=== PATIENT | male | born 1970 | race Two or more races ===

== ENCOUNTER 2024-03-29 08:39 | Outpatient (AMB) | payer BC, SELFPAY ==
--- NOTE | 2024-03-29 08:42 | A.OFFVIS_ITS ---
Vital Signs 03/29/24 08:48 Height 5 ft 6 in Weight 165 lb 12.602 oz BMI 26.8 BP 122/78 Blood Pressure Location Rt brachial Position Sitting Pulse 61 Pulse Source Pulse Oximeter Pulse Oximetry (%) 99 Oxygen Delivery Method Room Air Intake Visit Reasons: RA Intake Note: New patient, referred by [facility], Dr. Spencer, presents today for evaluation of RA. Previous rheum [place], was on MTX and folic acid. 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 Patient was diagnosed back in 2013 with seropositive RA. At that time he was started on methotrexate 10 mg weekly with improvement. Over Time his methotrexate was tapered to 10 mg weekly. His condition was stable. In 2020, the rheumatology practice closed at [place] and patient did not have a aerospace project engineer. He has been without meds since 2020. Patient states that he is trying to get more flare-ups affecting different joints such as his hands, shoulders, feet. Patient remains quite active. He runs or walks every day. Denies any other symptoms such as fevers, weight loss, cough or shortness of br eath. [facility] Medical History Fracture, metacarpal Seropositive rheumatoid arthritis Overweight Surgical History History of lung surgery Family History Father Rheumatoid arthritis Mother No problems noted. 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 Review of Systems Const Denies fever(s) and Denies weight loss Card Denies dyspnea Resp Denies cough and Denies dyspnea Musc Reports deformity, Reports arthralgias and Reports joint swelling Physical Exam Vital Signs: Last Vital Signs Pulse 61 03/29/24 08:48 BP 122/78 03/29/24 08:48 Pulse Ox 99 03/29/24 08:48 Oxygen Delivery Method Room Air 03/29/24 08:48 BMI result Body Mass Index 26.8 Const General: cooperative, healthy appearing and comfortable Nutritional Appearance: overweight Orientation/consciousness: patient oriented x3 Limitations: no limitations HEENT Head: Yes normocephalic and Yes atraumatic Mouth: moist mucous membranes Resp Effort & Inspection: normal respiratory effort and able to speak in complete sentences Auscultation: clear to auscultation bilaterally Cardio Rate: regular rate Rhythm: regular rhythm Skin General skin exam: no rashes or lesions noted Neuro General: patient oriented x3 Extrem Other: Multiple swollen MCPs and PIP is without tenderness Normal bilateral hand health care coordinator strength Normal range of motion of elbows and shoulders without pain Normal range of motion of knees without pain Right foot bunion and bunionette Left foot bunionette Slightly tender Negative MTP squeeze test bilaterally Normal nailfold capillaroscopy Assessment & Plan Assessment & Plan (1) Seropositive rheumatoid arthritis: Comment: +RF +++CCP ++BRODERICK dx 2013 MTX 2013 effective until 2020 lost to f/u 2020 Code(s): M05.9 - Rheumatoid arthritis with rheumatoid factor, unspecified Category: Medical Plan: This is a 53-year-old male with seropositive RA who presents for follow-up. Patient was diagnosed in 2013 and was well controlled with methotrexate until 2020 when his aerospace project engineer left the practice. He has been without DMARDs for a few years. On exam he has multiple swollen joints. Will need to restart DMARDs. Restart methotrexate at 12.5 mg weekly Start folic acid 1 mg daily Labs today and before next visit in 3 months (2) detention methotrexate user: Code(s): Z79.631 - detention (current) use of antimetabolite agent Category: Medical Plan: Monitor safety labs Plan I spent 47 minutes reviewing patient's chart, evaluating patient, ordering diagnostic workup, counseling patient and documenting in the chart Orders: Orders C Reactive Protein Today M05.9 - Rheumatoid arthritis with rheumatoid factor, unspecified, Z79.631 - buttermaker continuous churn (current) use of antimetabolite agent Hepatitis A,B,C Profile Today Z11.59 - Encounter for screening for other viral diseases Complete Blood Count Auto Diff 3 Months M05.9 - Rheumatoid arthritis with rheumatoid factor, unspecified, Z79.631 - buttermaker continuous churn (current) use of antimetabolite agent Comprehensive Met. Panel 3 Months M05.9 - Rheumatoid arthritis with rheumatoid factor, unspecified, Z79.631 - detention (current) use of antimetabolite agent C Reactive Protein 3 Months M05.9 - Rheumatoid arthritis with rheumatoid factor, unspecified, Z79.631 - buttermaker continuous churn (current) use of antimetabolite agent Erythrocyte Sedimentation Rate 3 Months M05.9 - Rheumatoid arthritis with rheumatoid factor, unspecified, Z79.631 - detention (current) use of antimetabolite agent Complete Blood Count Auto Diff Today M05.9 - Rheumatoid arthritis with rheumatoid factor, unspecified, Z79.631 - detention (current) use of antimetabolite agent Comprehensive Met. Panel Today M05.9 - Rheumatoid arthritis with rheumatoid factor, unspecified, Z79.631 - buttermaker continuous churn (current) use of antimetabolite agent Erythrocyte Sedimentation Rate Today M05.9 - Rheumatoid arthritis with rheumatoid factor, unspecified, Z79.631 - buttermaker continuous churn (current) use of antimetabolite agent T Spot TB Today Z11.7 - Encounter for testing for latent tuberculosis infection Medications: New methotrexate sodium 12.5 mg (5 x 2.5 mg) PO QWEEK 60 tabs 0RF folic acid 1 mg PO DAILY 90 tabs 0RF Coding Level of Care Code New Pt Level 4 (22306) Diagnoses Seropositive rheumatoid arthritis M05.9 buttermaker continuous churn methotrexate user Z79.631
[2024-03-29 08:48] VITALS: BP 122/78; PULSE 61; O2SAT 99; BMI 26.8
== END 2024-03-29 09:04 | disposition home or self-care (01) ==
PROVIDERS: PCP Pediatrics; Referring Provider Pediatrics; Visit Provider Student in an Organized Health Care Education/Training Program
DX: M05.79 Rheumatoid arthritis with rheumatoid factor of multiple sites without organ or systems involvement (principal); Z79.631 Long term (current) use of antimetabolite agent
CPT/HCPCS: 99204

== ENCOUNTER → 2024-03-29 08:39 | Outpatient (BNVA) | payer BC, SELFPAY | PROVIDERS: PCP Pediatrics; Referring Provider Pediatrics; Visit Provider Student in an Organized Health Care Education/Training Program ==

== ENCOUNTER 2024-03-29 09:10 | Outpatient (REF) | payer BC, SELFPAY ==
[2024-03-29 10:38] LABS: MANUAL DIFF FLAG NO
[2024-03-29 10:57] LABS: Alanine Aminotransferase 19 U/L (0-40); Albumin Level 4.2 g/dL (3.5-5.0); Alkaline Phosphatase 78 U/L (39-117); Anion Gap 13 (12-20); Aspartate Amino Transferase 21 U/L (5-37); Bilirubin Total 1.2 mg/dL (0.0-1.0); Blood Urea Nitrogen 16 mg/dL (9-16); C Reactive Protein 0.32 mg/dL (< or = 0.50); Calcium 9.4 mg/dL (8.4-10.2); Carbon Dioxide 26 mmol/L (22-29); Chloride 106 mmol/L (96-108); Estimated Glomerular Filt Rate > 60; Glucose Random 96 mg/dL (60-115); Potassium 4.4 mmol/L (3.3-5.1); Sodium 141 mmol/L (135-145); Total Protein 7.4 g/dL (6.5-8.0)
[2024-03-29 10:57] LABS: Basophils Percent Auto 0.5 % (0-2); Eosinophils Absolute Auto 0.1 X10*3/uL (0.0-0.4); Eosinophils Percent Auto 2.2 % (0-4); Hematocrit 42.3 % (42.0-52.0); Hemoglobin 14.4 g/dl (14.0-18.0); Imm Gran Abs Auto 0.01 X10*3/uL (0.00-0.03); Imm Gran Pct Auto 0.2 % (0.0-0.4); Lymphocytes Absolute Auto 1.3 X10*3/uL (1.2-4.9); Lymphocytes Percent Auto 21.6 % (20-40); Mean Corpuscular Hemoglobin 29.8 pg (27.0-33.0); Mean Corpuscular Volume 87.6 fL (80.0-98.0); Mean Platelet Volume 9.7 fL (9.4-12.4); Monocytes Absolute Auto 0.5 X10*3/uL (0.1-1.2); Monocytes Percent Auto 7.9 % (2-11); Neutrophils Absolute Auto 3.9 x10*3/uL (2.0-8.3); Neutrophils Percent Auto 67.6 % (45-73); Platelet Count 270 X10*3/uL (160-400); Red Blood Count 4.83 X10*6/uL (4.60-5.80); Red Cell Distribution Width 13.3 % (11.0-16.0); White Blood Count 5.8 X10*3/uL (4.8-10.8)
[2024-03-29 11:22] LABS: HBS Num1 6.52 mIU/mL (0-7.99); HBc Num1 0.09 S/CO (0.00-0.79); HBsAGNum1 0.35 S/CO (0.00-0.99); Hepatitis A Antibody IgM 0.18 Index (0-0.79); Hepatitis B Core Antibody Nonreactive (Nonreactive); Hepatitis B Surface Antigen Negative (Negative); ~HepC Num1 0.08 S/CO (0.00-0.79); ~Hepatitis A Antibody IgM Nonreactive (Nonreactive); ~Hepatitis B Surface Antibody NONREACTIVE (Nonreactive); ~Hepatitis C Antibody Nonreactive (Nonreactive)
[2024-03-29 11:50] LABS: Erythrocyte Sedimentation Rate 8 MM/HR (0-15)
[2024-04-01 10:13] LABS: TS Negative Control Passed; TS Panel A 0; TS Panel B 1; TS Positive Control Passed; TSpotTB Negative (Negative)
== END 2024-03-29 09:11 | disposition home or self-care (01) ==
LOC: HO.10HDL 09:10
PROVIDERS: Visit Provider Student in an Organized Health Care Education/Training Program
DX: M05.9 Rheumatoid arthritis with rheumatoid factor, unspecified (principal); Z11.7 Encounter for testing for latent tuberculosis infection; Z11.59 Encounter for screening for other viral diseases; Z79.631 Long term (current) use of antimetabolite agent
CPT/HCPCS: 36415; 80053; 85025; 85652; 86140; 86481; 86704; 86706; 86709; 86803; 87340

== ENCOUNTER 2024-06-23 11:54 | Outpatient (REF) | payer BC, SELFPAY ==
[2024-06-23 13:07] LABS: MANUAL DIFF FLAG NO
[2024-06-23 13:30] LABS: Basophils Percent Auto 0.5 % (0-2); Eosinophils Absolute Auto 0.1 X10*3/uL (0.0-0.4); Eosinophils Percent Auto 1.4 % (0-4); Hematocrit 38.5 % (42.0-52.0); Hemoglobin 13.2 g/dl (14.0-18.0); Imm Gran Abs Auto 0.01 X10*3/uL (0.00-0.03); Imm Gran Pct Auto 0.2 % (0.0-0.4); Lymphocytes Absolute Auto 1.4 X10*3/uL (1.2-4.9); Mean Corpuscular HGB Conc 34.3 g/dl (31.0-36.0); Mean Corpuscular Hemoglobin 30.7 pg (27.0-33.0); Mean Corpuscular Volume 89.5 fL (80.0-98.0); Mean Platelet Volume 10.1 fL (9.4-12.4); Monocytes Absolute Auto 0.4 X10*3/uL (0.1-1.2); Monocytes Percent Auto 8.5 % (2-11); Neutrophils Absolute Auto 2.4 x10*3/uL (2.0-8.3); Neutrophils Percent Auto 57.4 % (45-73); Platelet Count 235 X10*3/uL (160-400); White Blood Count 4.3 X10*3/uL (4.8-10.8)
[2024-06-23 14:12] LABS: Erythrocyte Sedimentation Rate 7 MM/HR (0-15)
[2024-06-23 14:15] LABS: Alanine Aminotransferase 18 U/L (0-40); Albumin Level 3.9 g/dL (3.5-5.0); Alkaline Phosphatase 79 U/L (39-117); Anion Gap 9 (12-20); Aspartate Amino Transferase 20 U/L (5-37); Bilirubin Total 1.3 mg/dL (0.0-1.0); Blood Urea Nitrogen 13 mg/dL (9-16); C Reactive Protein 0.12 mg/dL (< or = 0.50); Calcium 8.9 mg/dL (8.4-10.2); Carbon Dioxide 26 mmol/L (22-29); Chloride 109 mmol/L (96-108); Estimated Glomerular Filt Rate > 60; Glucose Random 103 mg/dL (60-115); Sodium 140 mmol/L (135-145); Total Protein 6.9 g/dL (6.5-8.0)
== END 2024-06-23 11:55 | disposition home or self-care (01) ==
LOC: HO.10HDL 11:54
PROVIDERS: Visit Provider Student in an Organized Health Care Education/Training Program
DX: M05.9 Rheumatoid arthritis with rheumatoid factor, unspecified (principal); Z79.631 Long term (current) use of antimetabolite agent
CPT/HCPCS: 36415; 80053; 85025; 85652; 86140

== ENCOUNTER 2024-07-03 09:04 | Outpatient (AMB) | payer BC, SELFPAY ==
--- NOTE | 2024-07-03 09:16 | A.OFFVIS_ITS ---
Vital Signs 07/03/24 09:17 Height 5 ft 6 in Weight 157 lb 6.561 oz BMI 25.4 BP 118/74 Blood Pressure Location Lt brachial Position Sitting Pulse 50 Pulse Source Pulse Oximeter Pulse Oximetry (%) 99 Oxygen Delivery Method Room Air Intake Visit Reasons: RA Intake Note: Patient presents follow up for RA today and lab review, last seen on 03/29/2024. Allergies No Known Allergies Allergy (Verified 07/03/24 09:19) Medication List - Last Reconciled 07/03/24 by Jia Garvin MD folic acid 1 mg PO DAILY methotrexate sodium 12.5 mg (5 x 2.5 mg) PO QWEEK multivitamin 1 tab PO DAILY omega 4-tps-yor-fish oil 60-90-500 mg (Fish Oil) 1 cap PO DAILY HPI Comments Details: This is a 53-year-old male with seropositive RA who presents for follow-up. He started taking methotrexate 12.5 mg once weekly as prescribed. Does not recall any side effects. He states that he notes significant improvement in his overall joint pain swelling and achiness. Doing well overall. Would like to discuss blood work Initial history: This is a 53-year-old male with history of seropositive RA who presents as a new patient. Patient was diagnosed back in 2013 with seropositive RA. At that time he was started on methotrexate 10 mg weekly with improvement. Over Time his methotrexate was tapered to 10 mg weekly. His condition was stable. In 2020, the rheumatology practice closed at [place] and patient did not have a whipped topping supervisor. He has been without meds since 2020. Patient states that he is trying to get more flare-ups affecting different joints such as his hands, shoulders, feet. Patient remains quite active. He runs or walks every day. Denies any other symptoms such as fevers, weight loss, cough or shortness of breath. [facility] Medical History Fracture, metacarpal Seropositive rheumatoid arthritis Overweight Surgical History History of lung surgery Family History Father Rheumatoid arthritis Mother No problems noted. 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 Review of Systems [facility] [place] Reports arthralgias Physical Exam Vital Signs: Last Vital Signs Pulse 50 07/03/24 09:17 BP 118/74 07/03/24 09:17 Pulse Ox 99 07/03/24 09:17 Oxygen Delivery Method Room Air 07/03/24 09:17 BMI result Body Mass Index 25.4 Const General: cooperative, healthy appearing and comfortable Nutritional Appearance: overweight Orientation/consciousness: patient oriented x3 Limitations: no limitations HEENT Head: Yes normocephalic and Yes atraumatic Mouth: moist mucous membranes Resp Effort & Inspection: normal respiratory effort and able to speak in complete sentences Cardio Rhythm: regular rhythm Skin General skin exam: no rashes or lesions noted Neuro General: patient oriented x3 Extrem Other: No wrist swelling or tenderness bilaterally or pain with flexion-extension Normal bilateral hand chip tuner strength No swollen MCPs today Mild swelling and bony enlargement of right 2nd and 3rd PIP is and left 3rd PIP. Only minimal tenderness Normal range of motion of elbows and shoulders without pain Normal range of motion of knees without pain Right foot bunion and bunionette Left foot bunionette Slightly tender Negative MTP squeeze test bilaterally Normal nailfold capillaroscopy Assessment & Plan Assessment & Plan (1) Seropositive rheumatoid arthritis: Comment: +RF +++CCP ++BRODERICK dx 2013 MTX 2013 effective until 2020 lost to f/u 2020 MTX restarted 03/2024 Code(s): M05.9 - Rheumatoid arthritis with rheumatoid factor, unspecified Category: Medical Plan: This is a 53-year-old male with seropositive RA who presents for follow-up. Started methotrexate 12.5 mg once weekly plus folic acid 1 mg daily last visit without side effects. On exam synovitis improved. Continue methotrexate 12.5 mg weekly Patient had to pay for folic acid, DC folic acid Start Leucovorin 5 mg once weekly the day after methotrexate Labs before next visit in 4 months (2) long-term methotrexate user: Code(s): Z79.631 - long-term (current) use of antimetabolite agent Category: Medical Plan: Mild anemia leukopenia since methotrexate was started. No infections We will keep an eye on it. Monitor safety labs. Hopefully it will improve with Leucovorin Plan I spent 25 minutes reviewing patient's chart, evaluating patient, ordering diagnostic workup, counseling patient and documenting in the chart Orders: Orders C Reactive Protein 4 Months M05.9 - Rheumatoid arthritis with rheumatoid factor, unspecified, Z79.631 - watermelon harvesting supervisor (current) use of antimetabolite agent Erythrocyte Sedimentation Rate 4 Months M05.9 - Rheumatoid arthritis with rheumatoid factor, unspecified, Z79.631 - long-term (current) use of antimetab olite agent Complete Blood Count Auto Diff 4 Months M05.9 - Rheumatoid arthritis with rheumatoid factor, unspecified, Z79.631 - long-term (current) use of antimetabolite agent Comprehensive Met. Panel 4 Months M05.9 - Rheumatoid arthritis with rheumatoid factor, unspecified, Z79.631 - watermelon harvesting supervisor (current) use of antimetabolite agent Medications: New leucovorin calcium Take 1 tab once weekly the day after you take methotrexate 5 mg PO QWEEK 12 tabs 1RF Discontinued folic acid Discontinued Reason: Doctor's Order 1 mg PO DAILY 90 tabs 0RF Coding Level of Care Code Est Pt Level 4 (18731) Diagnoses Seropositive rheumatoid arthritis M05.9 long-term methotrexate user Z79.631
[2024-07-03 09:17] VITALS: BP 118/74; PULSE 50; O2SAT 99; BMI 25.4
== END 2024-07-03 09:34 | disposition home or self-care (01) ==
PROVIDERS: PCP Pediatrics; Visit Provider Student in an Organized Health Care Education/Training Program
DX: M05.79 Rheumatoid arthritis with rheumatoid factor of multiple sites without organ or systems involvement (principal); Z79.631 Long term (current) use of antimetabolite agent
CPT/HCPCS: 99214

== ENCOUNTER → 2024-07-03 09:04 | Outpatient (BNVA) | payer BC, SELFPAY | PROVIDERS: PCP Pediatrics; Visit Provider Student in an Organized Health Care Education/Training Program ==

== ENCOUNTER 2024-10-20 08:59 | Outpatient (REF) | payer BC, SELFPAY ==
[2024-10-20 10:40] LABS: MANUAL DIFF FLAG NO
[2024-10-20 10:51] LABS: Basophils Percent Auto 0.5 % (0-2); Eosinophils Absolute Auto 0.1 X10*3/uL (0.0-0.4); Eosinophils Percent Auto 2.5 % (0-4); Hematocrit 41.3 % (42.0-52.0); Hemoglobin 13.9 g/dl (14.0-18.0); Imm Gran Abs Auto 0.01 X10*3/uL (0.00-0.03); Imm Gran Pct Auto 0.2 % (0.0-0.4); Lymphocytes Absolute Auto 1.2 X10*3/uL (1.2-4.9); Lymphocytes Percent Auto 22.3 % (20-40); Mean Corpuscular HGB Conc 33.7 g/dl (31.0-36.0); Mean Corpuscular Hemoglobin 30.8 pg (27.0-33.0); Mean Corpuscular Volume 91.4 fL (80.0-98.0); Mean Platelet Volume 9.7 fL (9.4-12.4); Monocytes Absolute Auto 0.5 X10*3/uL (0.1-1.2); Monocytes Percent Auto 9.2 % (2-11); Neutrophils Absolute Auto 3.6 x10*3/uL (2.0-8.3); Neutrophils Percent Auto 65.3 % (45-73); Platelet Count 247 X10*3/uL (160-400); Red Blood Count 4.52 X10*6/uL (4.60-5.80); Red Cell Distribution Width 12.6 % (11.0-16.0); White Blood Count 5.6 X10*3/uL (4.8-10.8)
[2024-10-20 11:06] LABS: Alanine Aminotransferase 26 U/L (0-40); Albumin Level 4.1 g/dL (3.5-5.0); Alkaline Phosphatase 75 U/L (39-117); Anion Gap 11 (12-20); Aspartate Amino Transferase 29 U/L (5-37); Bilirubin Total 1.1 mg/dL (0.0-1.0); Blood Urea Nitrogen 15 mg/dL (9-16); C Reactive Protein 0.11 mg/dL (< or = 0.50); Calcium 8.9 mg/dL (8.4-10.2); Carbon Dioxide 25 mmol/L (22-29); Chloride 108 mmol/L (96-108); Estimated Glomerular Filt Rate > 60; Glucose Random 84 mg/dL (60-115); Sodium 140 mmol/L (135-145); Total Protein 6.9 g/dL (6.5-8.0)
[2024-10-20 11:31] LABS: Erythrocyte Sedimentation Rate 3 MM/HR (0-15)
== END 2024-10-20 09:00 | disposition home or self-care (01) ==
LOC: HO.10HDL 08:59
PROVIDERS: Visit Provider Student in an Organized Health Care Education/Training Program
DX: M05.9 Rheumatoid arthritis with rheumatoid factor, unspecified (principal); Z79.631 Long term (current) use of antimetabolite agent
CPT/HCPCS: 36415; 80053; 85025; 85652; 86140

== ENCOUNTER 2024-10-23 09:10 | Outpatient (AMB) | payer BC, SELFPAY ==
--- NOTE | 2024-10-23 09:16 | A.OFFVIS_ITS ---
Vital Signs 10/23/24 09:19 Height 5 ft 6 in Weight 160 lb 7.944 oz BMI 25.9 BP 115/70 Blood Pressure Location Rt brachial Position Sitting Pulse 48 L Pulse Source Pulse Oximeter Pulse Oximetry (%) 98 Oxygen Delivery Method Simple Mask Intake Visit Reasons: RA Intake Note: Patient presents for RA. Allergies No Known Allergies Allergy (Verified 10/23/24 09:18) Medication List - Last Reconciled 10/23/24 by Jia Garvin MD leucovorin calcium 5 mg PO QWEEK methotrexate sodium 12.5 mg (5 x 2.5 mg) PO QWEEK multivitamin 1 tab PO DAILY omega 0-lgw-fer-fish oil 60-90-500 mg (Fish Oil) 1 cap PO DAILY HPI Comments Details: This is a 54-year-old male with seropositive RA who presents for follow-up. On 12.5 mg once weekly as prescribed and Leucovorin 5 mg once weekly. Doing well overall with no joint pain or stiffness. He has noticed some on fingers here and there but they do not limit him in any way. States that his eyes were feeling tired recently and he was evaluated by an fitting room inspector and had new prescription progressive lenses. States that his fitting room inspector suggested that he see an road oiler. Initial history: This is a 53-year-old male with history of seropositive RA who presents as a new patient. Patient was diagnosed back in 2013 with seropositive RA. At that time he was started on methotrexate 10 mg weekly with improvement. Over Time his methotrexate was tapered to 10 mg weekly. His condition was stable. In 2020, the rheumatology practice closed at [place] and patient did not have a sensitizer. He has been without meds since 2020. Patient states that he is trying to get more flare-ups affecting different joints such as his hands, shoulders, feet. Patient remains quite active. He runs or walks every day. Denies any other symptoms such as fevers, weight loss, cough or shortness of breath. [facility] Medical History Fracture, metacarpal Seropositive rheumatoid arthritis Overweight Surgical History History of lung surgery Family History Father Rheumatoid arthritis Mother No problems noted. 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 Review of Systems Eyes Details: Tired eyes Musc Denies arthralgias, Reports joint swelling and Denies stiffness Physical Exam Vital Signs: Last Vital Signs Pulse 48 L 10/23/24 09:19 BP 115/70 10/23/24 09:19 Pulse Ox 98 10/23/24 09:19 Oxygen Delivery Method Simple Mask 10/23/24 09:19 BMI result Body Mass Index 25.9 Const General: cooperative, healthy appearing and comfortable Nutritional Appearance: overweight Orientation/consciousness: patient oriented x3 Limitations: no limitations HEENT Head: Yes normocephalic and Yes atraumatic Mouth: moist mucous membranes Resp Effort & Inspection: normal respiratory effort and able to speak in complete sentences Cardio Rhythm: regular rhythm Skin General skin exam: no rashes or lesions noted Neuro General: patient oriented x3 Extrem Other: No wrist swelling or tenderness bilaterally or pain with flexion-extension Normal bilateral hand statistician mathematical strength Right 3rd MCP swelling without tenderness Mild swelling and bony enlargement of right 2nd and 3rd PIPs and left 3rd PIP. Not tender Normal range of motion of elbows and shoulders without pain Normal range of motion of knees without pain Negative MTP squeeze test bilaterally Normal nailfold capillaroscopy Assessment & Plan Assessment & Plan (1) Seropositive rheumatoid arthritis: Comment: +RF +++CCP ++BRODERICK dx 2013 MTX 2014 effective until 2020 lost to f/u 2020 MTX restarted 03/2024 Code(s): M05.9 - Rheumatoid arthritis with rheumatoid factor, unspecified Category: Medical Plan: This is a 53-year-old male with seropositive RA who presents for follow-up. Started methotrexate 12.5 mg once weekly plus leucovorin 5 mg once weekly. On exam today patient has few swollen joints, non that are tender, inflammatory markers are normal. Patient asymptomatic. We will continue to monitor patient clinically. Can consider increasing methotrexate in the future. Continue methotrexate 12.5 mg weekly Continue Leucovorin 5 mg once weekly Labs before next visit in 4 months (2) [facility] methotrexate user: Code(s): Z79.631 - [facility] (current) use of antimetabolite agent Category: Medical Plan: Monitor safety labs (3) Tired eyes: Code(s): H53.10 - Unspecified subjective visual disturbances Category: Medical Plan: Patient concerned about eye involvement with rheumatoid arthritis. He was recently evaluated by fitting room inspector who suggested an ophthalmology evaluation. Discussed with patient that ophthalmologic complications can acquire and patients with rheumatoid arthritis but these are usually rare and in patients who have poorly-controlled RA however given his history of RA and Design Assembler recommendation to see Ophthalmology I suggested making an appointment with road oiler Plan I spent 25 minutes reviewing patient's chart, evaluating patient, ordering diagnostic workup, counseling patient and documenting in the chart Orders: Orders Complete Blood Count Auto Diff 4 Months M05.9 - Rheumatoid arthritis with rheumatoid factor, unspecified, Z79.631 - [facility] (current) use of antimetabolite agent Comprehensive Met. Panel 4 Months M05.9 - Rheumatoid arthritis with rheumatoid factor, unspecified, Z79.631 - [facility] (current) use of antimetabolite agent C Reactive Protein 4 Months M05.9 - Rheumatoid arthritis with rheumatoid facto r, unspecified, Z79.631 - terminal computer operator (current) use of antimetabolite agent Erythrocyte Sedimentation Rate 4 Months M05.9 - Rheumatoid arthritis with rheumatoid factor, unspecified, Z79.631 - terminal computer operator (current) use of antimetabolite agent Medications: Refilled leucovorin calcium Take 1 tab once weekly the day after you take methotrexate 5 mg PO QWEEK 12 tabs 1RF Coding Level of Care Code Est Pt Level 4 (02307) Complex EM visit Add On G2211 Diagnoses Seropositive rheumatoid arthritis M05.9 terminal computer operator methotrexate user Z79.631 Tired eyes H53.10
[2024-10-23 09:19] VITALS: BP 115/70; PULSE 48; O2SAT 98; BMI 25.9
== END 2024-10-23 09:41 | disposition home or self-care (01) ==
PROVIDERS: PCP Pediatrics; Visit Provider Student in an Organized Health Care Education/Training Program
DX: M05.79 Rheumatoid arthritis with rheumatoid factor of multiple sites without organ or systems involvement (principal); Z79.631 Long term (current) use of antimetabolite agent; H53.10 Unspecified subjective visual disturbances
CPT/HCPCS: 99214

== ENCOUNTER 2025-02-20 08:37 | Outpatient (REF) | payer BC, SELFPAY ==
[2025-02-20 09:52] LABS: MANUAL DIFF FLAG NO
[2025-02-20 11:05] LABS: Basophils Percent Auto 0.5 % (0-2); Eosinophils Absolute Auto 0.2 X10*3/uL (0.0-0.4); Eosinophils Percent Auto 3.1 % (0-4); Hematocrit 40.1 % (42.0-52.0); Hemoglobin 13.5 g/dl (14.0-18.0); Imm Gran Abs Auto 0.01 X10*3/uL (0.00-0.03); Imm Gran Pct Auto 0.2 % (0.0-0.4); Lymphocytes Absolute Auto 1.3 X10*3/uL (1.2-4.9); Lymphocytes Percent Auto 21.8 % (20-40); Mean Corpuscular HGB Conc 33.7 g/dl (31.0-36.0); Mean Platelet Volume 10.2 fL (9.4-12.4); Monocytes Absolute Auto 0.5 X10*3/uL (0.1-1.2); Monocytes Percent Auto 8.5 % (2-11); Neutrophils Absolute Auto 3.9 x10*3/uL (2.0-8.3); Neutrophils Percent Auto 65.9 % (45-73); Platelet Count 245 X10*3/uL (160-400); Red Blood Count 4.36 X10*6/uL (4.60-5.80); Red Cell Distribution Width 13.5 % (11.0-16.0); White Blood Count 5.9 X10*3/uL (4.8-10.8)
[2025-02-20 11:32] LABS: Alanine Aminotransferase 18 U/L (0-40); Alkaline Phosphatase 82 U/L (39-117); Anion Gap 8 (12-20); Aspartate Amino Transferase 25 U/L (5-37); Bilirubin Total 1.1 mg/dL (0.0-1.0); Blood Urea Nitrogen 15 mg/dL (9-16); C Reactive Protein 0.15 mg/dL (< or = 0.50); Calcium 8.7 mg/dL (8.4-10.2); Carbon Dioxide 27 mmol/L (22-29); Chloride 108 mmol/L (96-108); Estimated Glomerular Filt Rate > 60; Glucose Random 104 mg/dL (60-115); Potassium 4.3 mmol/L (3.3-5.1); Sodium 139 mmol/L (135-145); Total Protein 6.7 g/dL (6.5-8.0)
[2025-02-20 12:20] LABS: Erythrocyte Sedimentation Rate 7 MM/HR (0-15)
== END 2025-02-20 08:38 | disposition home or self-care (01) ==
LOC: HO.10HDL 08:37
PROVIDERS: Visit Provider Student in an Organized Health Care Education/Training Program
DX: M05.9 Rheumatoid arthritis with rheumatoid factor, unspecified (principal); Z79.631 Long term (current) use of antimetabolite agent
CPT/HCPCS: 36415; 80053; 85025; 85652; 86140

== ENCOUNTER 2025-02-23 11:11 | Outpatient (AMB) | payer BC, SELFPAY ==
--- NOTE | 2025-02-23 11:36 | A.OFFVIS_ITS ---
Vital Signs 02/23/25 11:39 Height 5 ft 6 in Weight 161 lb 6.054 oz BMI 26.0 BP 112/78 Blood Pressure Location Lt brachial Position Sitting Pulse 46 L Pulse Source Pulse Oximeter Pulse Oximetry (%) 98 Oxygen Delivery Method Room Air Intake Visit Reasons: RA Intake Note: Patient presents for RA. Allergies No Known Allergies Allergy (Verified 02/23/25 11:39) Medication List - Last Reconciled 02/23/25 by Adriane Pérez MD leucovorin calcium 5 mg PO QWEEK methotrexate sodium 12.5 mg (5 x 2.5 mg) PO QWEEK 90 days multivitamin 1 tab PO DAILY omega 9-ahj-tnf-fish oil 60-90-500 mg (Fish Oil) 1 cap PO DAILY HPI Comments Details: Patient is a 54-year-old male with seropositive rheumatoid arthritis here today for follow up Interval History: Patient last seen 10/23/[address] Garvin. At that time he was on methotrexate 12.5 mg once a week and leucovorin rescue 5 mg once weekly 24 hours after the me thotrexate dose. Reported that she was doing well with no joint pain or stiffness at that time. He did have a few swollen joints on examination but his inflammatory markers were normal and so no changes were made to his medications Today, Patient states he is doing well on the Mtx Complains of left wrist pain has AM stiffness about 2 hours Intermittent PIP swelling but no tenderness Very active, runs every day Sometimes gets right MTP pain Rheumatologic History: +RF +++CCP ++BRODERICK dx 2013 MTX 2013 effective until 2020 lost to f/u 2020 MTX restarted 03/2024 Initial history: This is a 53-year-old male with history of seropositive RA who presents as a new patient. Patient was diagnosed back in 2013 with seropositive RA. At that time he was started on methotrexate 10 mg weekly with improvement. Over Time his methotrexate was tapered to 10 mg weekly. His condition was stable. 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 He has been without meds since 2020. Patient states that he is trying to get more flare-ups affecting different joints such as his hands, shoulders, feet. Patient remains quite active. He runs or walks every day. Denies any other symptoms such as fevers, weight loss, cough or shortness of breath. Current Rheumatology Medication(s): Methotrexate 12.5mg once weekly Leucovorin 5 mg once weekly [facility] Medical History Fracture, metacarpal Seropositive rheumatoid arthritis Overweight Surgical History History of lung surgery Family History Father Rheumatoid arthritis Mother No problems noted. 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 Review of Systems Const Details: Review of Systems Constitutional: Denies fever, chills, weight loss ENT: Denies vision changes, eye pain or eye redness, dental caries, dry mouth GI: Denies nausea, vomiting, diarrhea, abdominal pain, change in BM Pulm: Denies SOB, JORGENSEN, hemoptysis, wheezing Cards: Denies chest pain, palpitations Skin: Denies Raynaud's, rash, nail changes, photosensitivity, TIME STUDY CLERK: Denies headaches, weakness, paresthesias, recurrent falls MSK: as per HPI All other systems reviewed and are unremarkable except noted above Physical Exam Vital Signs: BMI result Body Mass Index 26.0 Vital signs reviewed Physical Examination CONSTITUITIONAL Patient alert and cooperative. Well appearing and in no apparent painful distress HEENT Conjunctiva and sclera clear. ?Pupils equal round and reactive to light. ?No lymphadenopathy. ? CHEST/RESPIRATORY SYSTEM Normal respiratory effort and able to speak in complete sentences. ?Clear to auscultation bilaterally. ?No crackles, rales, rhonchi, wheezes heard. CARDIAC SYSTEM Regular rate and rhythm. ?S1 and S2 heard no murmurs. ?Radial pulses intact bilaterally MSK Hands: ?Able to make a fist. Swelling but no tenderness to palpation of the right 3rd and 4th PIPs, left 3rd and 4th PIPs. Synovial hypertrophy noted to the 2nd and 3rd MCPs bilaterally Wrists: ?Full range of motion at the wrists without pain. ?No tenderness to palpation or synovitis noted to the wrists. Tenderness to palpation of the 6th compartment of the wrist continuing the extensor carpi ulnaris Elbows: Full range of motion without pain. No tenderness, weakness, swelling, increased warmth or erythema. Shoulders: Full range of active range of motion without pain. No tenderness, weakness, swelling, increased warmth or erythema. Knees: ?Full range of motion. ?No tenderness, swelling, increased warmth or erythema.? Crepitations felt Ankles: Full range of motion. ?No tenderness, swelling, increased warmth or erythema.? Feet: ?Positive squeeze test on the right with tenderness to palpation of the 1st MTP. Negative squeeze test on the left Tender points:?No tenderness to palpation of the bilateral trapezius, supraspinatus, greater trochanters, anterior costochondral junctions, bilateral gluteal areas, bilateral suboccipital muscle insertions SKIN Skin intact without rashes. Results Reviewed Results Reviewed: Laboratory Tests 02/20/25 08:40 WBC 5.9 RBC 4.36 L Hgb 13.5 L Hct 40.1 L ESR 7 Sodium 139 Potassium 4.3 Chloride 108 Carbon Dioxide 27 BUN 15 Creatinine 0.87 AST 25 ALT 18 Alkaline Phosphatase 82 C-Reactive Protein 0.15 Laboratory Tests 03/29/24 09:14 Hepatitis A IgM Ab Nonreactive Hep Bs Antigen Negative Hep Bs Antibody NONREACTIVE Hep B Core Total Ab Nonreactive Hepatitis C Ab (EIA) Nonreactive TB Test (T-Spot) Com Negative Assessment & Plan Assessment & Plan (1) Seropositive rheumatoid arthritis: Comment: +RF +++CCP ++BRODERICK dx 2013 MTX 2013 effective until 2020 lost to f/u 2020 MTX restarted 03/2024 Code(s): M05.9 - Rheumatoid arthritis with rheumatoid factor, unspecified Category: Medical Plan: #Seropositive RA Patient is a 54-year-old male with seropositive rheumatoid arthritis here today for follow up. Currently with [id number] disease activity on methotrexate monotherapy. We will increase the dose to 15 mg weekly. 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 Limit alcohol and avoid Bactrim ? Monitoring: ?CBC, BMP, LFTs every 3-4 months and hepatitis serologies as needed Plan I spent 35 minutes reviewing the record and labs, taking a history, examining the patient, discussing the treatment plan, ordering diagnostic work up and documenting in the medical record Orders: Orders XR hand RT min 3V Today M05.9 - Rheumatoid arthritis with rheumatoid factor, unspecified XR wrist RT min 3V Today M05.9 - Rheumatoid arthritis with rheumatoid factor, unspecified XR foot LT min 3V Today M05.9 - Rheumatoid arthritis with rheumatoid factor, unspecified Comprehensive Met. Panel 4 Months M05.9 - Rheumatoid arthritis with rheumatoid factor, unspecified C Reactive Protein 4 Months M05.9 - Rheumatoid arthritis with rheumatoid factor, unspecified XR hand LT min 3V Today M05.9 - Rheumatoid arthritis with rheumatoid factor, unspecified XR wrist LT min 3V Today M05.9 - Rheumatoid arthritis with rheumatoid factor, unspecified XR foot RT min 3V Today M05.9 - Rheumatoid arthritis with rheumatoid factor, unspecified Complete Blood Count Auto Diff 4 Months M05.9 - Rheumatoid arthritis with rheumatoid factor, unspecified Erythrocyte Sedimentation Rate 4 Months M05.9 - Rheumatoid arthritis with rheumatoid factor, unspecified Hepatitis A,B,C Profile 4 Months M05.9 - Rheumatoid arthritis with rheumatoid factor, unspecified T Spot TB 4 Months M05.9 - Rheumatoid arthritis with rheumatoid factor, unspecified Medications: Changed From methotrexate sodium 12.5 mg (5 x 2.5 mg) PO QWEEK 90 days 65 tabs 1RF M05.9 - Rheumatoid arthritis with rheumatoid factor, unspecified To methotrexate sodium 15 mg (6 x 2.5 mg) PO QWEEK 90 days 78 tabs 1RF M05.9 - Rheumatoid arthritis with rheumatoid factor, unspecified Coding Level of Care Code Est Pt Level 4 (88086) Complex EM visit Add On G2211 Diagnoses Seropositive rheumatoid arthritis M05.9 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
[2025-02-23 11:39] VITALS: BP 112/78; PULSE 46; O2SAT 98; BMI 26.0
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
== END 2025-02-23 12:04 | disposition home or self-care (01) ==
LOC: HO.RHE 11:11
PROVIDERS: PCP Pediatrics; Visit Provider Student in an Organized Health Care Education/Training Program
DX: M05.79 Rheumatoid arthritis with rheumatoid factor of multiple sites without organ or systems involvement (principal); Z79.631 Long term (current) use of antimetabolite agent
CPT/HCPCS: 99214

== ENCOUNTER 2025-06-13 15:05 | Outpatient (REF) | payer BC, SELFPAY ==
--- NOTE | ~2025-06-13 | XR_ITS ---
EXAMINATION: XR HAND, RIGHT XR HAND, LEFT XR WRIST, RIGHT XR WRIST, LEFT CLINICAL INFORMATION: M05.9 - Rheumatoid arthritis with rheumatoid factor, unspecified COMPARISON: None available. TECHNIQUE: Three views of each hand and Four views of each wrist. FINDINGS: RIGHT HAND AND WRIST: The bones and soft tissues are normal. No fracture. Alignment is anatomic. Joint spaces are maintained. No periarticular erosions or periarticular osteopenia. No significant degenerative findings. Normal carpal rows. Mild negative ulnar variance. Normal soft tissues. LEFT HAND AND WRIST: The bones and soft tissues are normal. No acute fracture. There is a healed fracture of the distal fourth metacarpal. Alignment is anatomic. Joint spaces are maintained. No periarticular erosions or periarticular osteopenia. No significant degenerative findings. Normal carpal rows. Mild negative ulnar variance. Normal soft tissues. XR/XR Wrist Sloan min 3V IMPRESSION: Essentially normal hands and wrists. No evidence of erosive arthropathy. Electronically signed by: Renan Adler MD 06/13/2025 04:06 PM EDT
--- NOTE | ~2025-06-13 | XR_ITS ---
EXAMINATION: XR HAND, RIGHT XR HAND, LEFT XR WRIST, RIGHT XR WRIST, LEFT CLINICAL INFORMATION: M05.9 - Rheumatoid arthritis with rheumatoid factor, unspecified COMPARISON: None available. TECHNIQUE: Three views of each hand and Four views of each wrist. FINDINGS: RIGHT HAND AND WRIST: The bones and soft tissues are normal. No fracture. Alignment is anatomic. Joint spaces are maintained. No periarticular erosions or periarticular osteopenia. No significant degenerative findings. Normal carpal rows. Mild negative ulnar variance. Normal soft tissues. LEFT HAND AND WRIST: The bones and soft tissues are normal. No acute fracture. There is a healed fracture of the distal fourth metacarpal. Alignment is anatomic. Joint spaces are maintained. No periarticular erosions or periarticular osteopenia. No significant degenerative findings. Normal carpal rows. Mild negative ulnar variance. Normal soft tissues. XR/XR Hand Bilat min 3v IMPRESSION: Essentially normal hands and wrists. No evidence of erosive arthropathy. Electronically signed by: Renan Adler MD 06/13/2025 04:06 PM EDT
--- NOTE | ~2025-06-13 | XR_ITS ---
EXAMINATION: XR FOOT, SLOAN 3V CLINICAL INFORMATION: M05.9 - Rheumatoid arthritis with rheumatoid factor, unspecified COMPARISON: None available. TECHNIQUE: AP, lateral, and oblique views of each foot. FINDINGS: RIGHT FOOT: No fracture, dislocation, or suspicious bone lesion. No periarticular osteopenia or evidence of periarticular erosions present. Mild degenerative arthritis in the first MTP joint. Normal plantar arch. The midfoot and hindfoot appear normal. There is no soft tissue abnormality. LEFT FOOT: No fracture, dislocation, or suspicious bone lesion. No periarticular osteopenia or evidence of periarticular erosions present. Minimal degenerative arthritis in the first MTP joint. Normal plantar arch. The midfoot and hindfoot appear normal. There is no soft tissue abnormality. XR/XR Foot Sloan 3V IMPRESSION: 1. No evidence of erosive arthropathy in either foot. Essentially normal exams. Electronically signed by: Renan Adler MD 06/13/2025 04:02 PM EDT
[2025-06-13 16:07] LABS: MANUAL DIFF FLAG NO
--- OUTSIDE RECORDS SUMMARY | 2025-06-13 16:23 | XMS_ITS ---
Author Name [facility] Organization Unknown Care Team Organization Name Specialty Phone Email Start Date End Da te [facility] Yovani Spencer Primary Care 2022 06/05/2024
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
[2025-06-13 17:23] LABS: Hematocrit 40.3 % (42.0-52.0); Hemoglobin 13.9 g/dl (14.0-18.0); Imm Gran Pct Auto 0.2 % (0.0-0.4); Mean Corpuscular HGB Conc 34.5 g/dl (31.0-36.0); Mean Corpuscular Hemoglobin 30.8 pg (27.0-33.0); Mean Corpuscular Volume 89.2 fL (80.0-98.0); Platelet Count 256 X10*3/uL (160-400); Red Blood Count 4.52 X10*6/uL (4.60-5.80); White Blood Count 5.7 X10*3/uL (4.8-10.8)
[2025-06-13 17:24] LABS: Imm Gran Abs Auto 0.01 X10*3/uL (0.00-0.03); Lymphocytes Absolute Auto 1.3 X10*3/uL (1.2-4.9); NRBC Abs Auto 0.000 X10*3/uL (0.0-0.012); NRBC Pct Auto 0.0 /100WBC (0.0-0.2)
[2025-06-13 18:10] LABS: Alanine Aminotransferase 21 U/L (0-40); Albumin Level 4.2 g/dL (3.5-5.0); Alkaline Phosphatase 70 U/L (39-117); Anion Gap 13 (12-20); Aspartate Amino Transferase 39 U/L (5-37); Blood Urea Nitrogen 15 mg/dL (9-16); Calcium 8.9 mg/dL (8.4-10.2); Carbon Dioxide 22 mmol/L (22-29); Chloride 106 mmol/L (96-108); Estimated Glomerular Filt Rate > 60; Potassium 4.1 mmol/L (3.3-5.1); Sodium 137 mmol/L (135-145); Total Protein 7.2 g/dL (6.5-8.0)
[2025-06-14 04:20] LABS: HBS Num1 3.82 mIU/mL (0-7.99); HBc Num1 0.06 S/CO (0.00-0.79); HBsAGNum1 0.47 S/CO (0.00-0.99); Hepatitis A Antibody IgM 0.19 Index (0-0.79); Hepatitis B Surface Antigen Negative (Negative); ~HepC Num1 0.08 S/CO (0.00-0.79); ~Hepatitis A Antibody IgM Nonreactive (Nonreactive); ~Hepatitis B Surface Antibody NONREACTIVE (Nonreactive); ~Hepatitis C Antibody Nonreactive (Nonreactive)
[2025-06-15 22:28] LABS: TS Negative Control Passed; TS Panel A 0; TS Panel B 0; TS Positive Control Passed; TSpotTB Negative (Negative)
== END 2025-06-13 15:06 | disposition home or self-care (01) ==
LOC: HO.XRAY 15:05
PROVIDERS: PCP Pediatrics; Visit Provider Student in an Organized Health Care Education/Training Program
DX: Z11.1 Encounter for screening for respiratory tuberculosis (principal); Z11.59 Encounter for screening for other viral diseases; M05.9 Rheumatoid arthritis with rheumatoid factor, unspecified
CPT/HCPCS: 36415; 73110; 73130; 73630; 80053; 85025; 85652; 86140; 86481; 86704; 86706; 86709; 86803; 87340

== ENCOUNTER → 2025-06-13 15:10 | Outpatient (BNV) | payer BC, SELFPAY | PROVIDERS: PCP Pediatrics; Visit Provider Radiology Diagnostic Radiology | DX: M05.79 Rheumatoid arthritis with rheumatoid factor of multiple sites without organ or systems involvement (principal) | CPT/HCPCS: 73110; 73130; 73630 ==

== ENCOUNTER 2025-06-26 10:26 | Outpatient (AMB) | payer BC, SELFPAY ==
--- NOTE | 2025-06-26 10:53 | A.OFFVIS_ITS ---
Vital Signs 06/26/25 10:57 Height 5 ft 6 in Weight 158 lb 15.253 oz BMI 25.7 BP 115/64 Blood Pressure Location Rt brachial Position Sitting Pulse 49 L Pulse Source Pulse Oximeter Pulse Oximetry (%) 99 Oxygen Delivery Method Room Air Intake Visit Reasons: f/u RA Intake Note: Patient presents for RA follow up. Allergies No Known Allergies Allergy (Verified 06/26/25 10:57) Medication List - Last Reconciled 06/26/25 by Adriane Pérez MD leucovorin calcium 5 mg PO QWEEK methotrexate sodium 15 mg (6 x 2.5 mg) PO QWEEK 90 days multivitamin 1 tab PO DAILY omega 3-lic-mnk-fish oil 60-90-500 mg (Fish Oil) 1 cap PO DAILY HPI Comments Details: Patient is a 54-year-old male with seropositive rheumatoid arthritis here today for follow up Interval History: Patient last seen 02/23/2025 with me - On methotrexate 12.5 mg once a week and leucovorin rescue 5 mg once weekly 24 hours after the methotrexate dose - Complains of left wrist pain - Has AM stiffness about 2 hours - Intermittent PIP swelling but no tenderness - Very active, runs every day - Sometimes gets right MTP pain - Mtx increased to 15mg Today - On methotrexate 15mg weekly and leucovorin 5mg weekly - Doing better on the increased dose Rheumatologic History: +RF +++CCP ++BRODERICK dx 2013 MTX 2013 effective until 2020 lost to f/u 2020 MTX restarted 03/2024 Initial history: This is a 53-year-old male with history of seropositive RA who presents as a new patient. Patient was diagnosed back in 2013 with seropositive RA. At that time he was started on methotrexate 10 mg weekly with improvement. Over Time his methotrexate was tapered to 10 mg weekly. His condition was stable. In 2020, the rheumatology practice closed at [place] and patient did not have a student affairs vice president. He has been without meds since 2020. Patient states that he is trying to get more flare-ups affecting different joints such as his hands, shoulders, feet. Patient remains quite active. He runs or walks every day. Denies any other symptoms such as fevers, weight loss, cough or shortness of breath. Current Rheumatology Medication(s): Methotrexate 15mg once weekly Leucovorin 5 mg once weekly [facility] Medical History Fracture, metacarpal Seropositive rheumatoid arthritis Overweight Surgical History History of lung surgery Family History Father Rheumatoid arthritis Mother No problems noted. 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 Review of Systems Const Details: Review of Systems Constitutional: Denies fever, chills, weight loss ENT: Denies vision changes, eye pain or eye redness, dental caries, dry mouth GI: Denies nausea, vomiting, diarrhea, abdominal pain, change in BM Pulm: Denies SOB, JORGENSEN, hemoptysis, wheezing Cards: Denies chest pain, palpitations Skin: Denies Raynaud's, rash, nail changes, photosensitivity, ARMATURE COIL WINDER: Denies headaches, weakness, paresthesias, recurrent falls MSK: as per HPI All other systems reviewed and are unremarkable except noted above Physical Exam Exam Exam: Vital signs reviewed Physical Examination CONSTITUITIONAL Patient alert and cooperative. Well appearing and in no apparent painful distress MSK Hands * Right Hand: Able to make a fist. No swelling or tenderness to palpation of the MCPs, PIPs or DIPs. * Left Hand: Able to make a fist. No swelling or tenderness to palpation of the MCPs, PIPs or DIPs. * Herbedens and Bouchards nodes noted bilaterally Wrists * Right Wrist: Full ROM to flexion and extension. No swelling or TTP * Left Wrist: Full ROM to flexion and extension. No swelling or TTP Elbows * Right Elbow: Full ROM. No swelling or TTP. No TTP of the medial epicondyle. No TTP of the lateral epicondyle * Left Elbow: Full ROM. No swelling or TTP. No TTP of the medial epicondyle. No TTP of the lateral epicondyle Shoulders * Right shoulder: Full ROM. No swelling noted. No TTP of the AC joint. No TTP of the subacromial bursa. No TTP of the posterior shoulder * Left shoulder: Full ROM. No swelling noted. No TTP of the AC joint. No TTP of the subacromial bursa. No TTP of the posterior shoulder Knees * Right knee: Full ROM. No swelling noted. No TTP of the knee joint line. No TTP of pes anserine bursa * Left knee: Full ROM. No swelling noted. No TTP of the knee joint line. No TTP of pes anserine bursa. Ankles * Right ankle: Good ankle dorsiflexion and plantar flexion. No swelling. No TTP of the ankle joint * Left ankle: Good ankle dorsiflexion and plantar flexion. No swelling. No TTP of the ankle joint Feet * Right foot: Negative squeeze test * Left foot: Negative squeeze test Tender points? * No tenderness to palpation of the bilateral trapezius, supraspinatus, anterior costochondral junctions, bilateral suboccipital muscle insertions SKIN No rashes Vital Signs: Last Vital Signs Pulse 49 L 06/26/25 10:57 BP 115/64 06/26/25 10:57 Pulse Ox 99 06/26/25 10:57 Oxygen Delivery Method Room Air 06/26/25 10:57 BMI result Body Mass Index 25.7 Results Reviewed Results Reviewed: Laboratory Tests 06/13/25 16:05 WBC 5.7 RBC 4.52 L Hgb 13.9 L Hct 40.3 L Plt Count 256 ESR 6 Sodium 137 Potassium 4.1 Chloride 106 Carbon Dioxide 22 BUN 15 Creatinine 0.81 AST 39 H ALT 21 Alkaline Phosphatase 70 C-Reactive Protein < 0.10 Laboratory Tests 06/13/25 16:05 Hepatitis A IgM Ab Nonreactive Hep Bs Antigen Negative Hep Bs Antibody NONREACTIVE Hep B Core Total Ab Nonreactive Hepatitis C Ab (EIA) Nonreactive TB Test (T-Spot) Com Negative XR Bilateral Hnads and Wrists 05/2025 FINDINGS: RIGHT HAND AND WRIST: The bones and soft tissues are normal. No fracture. Alignment is anatomic. Joint spaces are maintained. No periarticular erosions or periarticular osteopenia. No significant degenerative findings. Normal carpal rows. Mild negative ulnar variance. Normal soft tissues. LEFT HAND AND WRIST: The bones and soft tissues are normal. No acute fracture. There is a healed fracture of the distal fourth metacarpal. Alignment is anatomic. Joint spaces are maintained. No periarticular erosions or periarticular osteopenia. No significant degenerative findings. Normal carpal rows. Mild negative ulnar variance. Normal soft tissues. IMPRESSION: Essentially normal hands and wrists. No evidence of erosive arthropathy. XR Bilateral Feet 05/2025 FINDINGS: RIGHT FOOT: No fracture, dislocation, or suspicious bone lesion. No periarticular osteopenia or evidence of periarticular erosions present. Mild degenerative arthritis in the first MTP joint. Normal plantar arch. The midfoot and hindfoot appear normal. There is no soft tissue abnormality. LEFT FOOT: No fracture, dislocation, or suspicious bone lesion. No periarticular osteopenia or evidence of periarticular erosions present. Minimal degenerative arthritis in the first MTP joint. Normal plantar arch. The midfoot and hindfoot appear normal. There is no soft tissue abnormality. IMPRESSION: 1. No evidence of erosive arthropathy in either foot. Essentially normal exams. Assessment & Plan Assessment & Plan (1) Seropositive rheumatoid arthritis: Comment: +RF +++CCP ++BRODERICK dx 2013 MTX 2013 effective until 2020 lost to f/u 2020 MTX restarted 03/2024 Code(s): M05.9 - Rheumatoid arthritis with rheumatoid factor, unspecified Category: Medical Plan: #Seropositive RA Patient is a 54-year-old male with seropositive rheumatoid arthritis here today for follow up. No evidence of active disease on examination today after increase dose of methotrexate. However he does have a mild transaminitis of his ALT. We will recheck his CMP in 2 weeks if there is persistent elevation we will need to decrease the methotrexate. If there is return of symptoms on the decrease of methotrexate we may need to change him to leflunomide or another medication Plan - Methotrexate 15mg weekly PO - Folic acid 1mg daily - CMP in 2 weeks - RTC 6 months - Labs before visit: CBC, CMP, ESR, CRP (2) senior living methotrexate user: Code(s): Z79.631 - intermediate frame tender (current) use of antimetabolite agent Category: Medical Plan: #Long-term Current Use of Methotrexate Discussed with patient the benefits and risks of methotrexate for managing their rheumatic condition Benefits include reduced pain, reduced mortality, maintenance of remission and reduction of flares Risks include oral ulcers, photosensitivity, hepatotoxicity, hematologic toxicity, pneumonitis, flu-like symptoms (especially day after administration), nodulosis, lymphomas ? Limit alcohol and avoid Bactrim ? Monitoring: ?CBC, BMP, LFTs every 3-4 months and hepatitis serologies as needed Plan I spent 30 minutes reviewing the record and labs, taking a history, examining the patient, discussing the treatment plan, ordering diagnostic work up and documenting in the medical record Orders: Orders Comprehensive Met. Panel 6 Months Z79.899 - Other senior living (current) drug therapy C Reactive Protein 6 Months Z79.899 - Other intermediate frame tender (current) drug therapy Comprehensive Met. Panel 2 Weeks Z79.899 - Other senior living (current) drug therapy Complete Blood Count Auto Diff 6 Months Z79.899 - Other senior living (current) drug therapy Erythrocyte Sedimentation Rate 6 Months Z79.899 - Other intermediate frame tender (current) drug therapy Coding Level of Care Code Est Pt Level 4 (08733) Complex EM visit Add On G2211 Diagnoses Seropositive rheumatoid arthritis M05.9 intermediate frame tender methotrexate user Z79.631
[2025-06-26 10:57] VITALS: BP 115/64; PULSE 49; O2SAT 99; BMI 25.7
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
== END 2025-06-26 11:26 | disposition home or self-care (01) ==
LOC: HO.RHES 10:27
PROVIDERS: PCP Pediatrics; Visit Provider Student in an Organized Health Care Education/Training Program
DX: M05.9 Rheumatoid arthritis with rheumatoid factor, unspecified (principal); Z79.631 Long term (current) use of antimetabolite agent
CPT/HCPCS: 99214

== ENCOUNTER 2025-07-19 15:23 | Outpatient (REF) | payer BC, SELFPAY ==
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
[2025-07-19 18:01] LABS: Alanine Aminotransferase 15 U/L (0-40); Albumin Level 4.1 g/dL (3.5-5.0); Alkaline Phosphatase 88 U/L (39-117); Anion Gap 11 (12-20); Aspartate Amino Transferase 21 U/L (5-37); Blood Urea Nitrogen 17 mg/dL (9-16); Calcium 9.1 mg/dL (8.4-10.2); Carbon Dioxide 28 mmol/L (22-29); Chloride 108 mmol/L (96-108); Estimated Glomerular Filt Rate > 60; Potassium 4.1 mmol/L (3.3-5.1); Sodium 143 mmol/L (135-145); Total Protein 6.8 g/dL (6.5-8.0)
== END 2025-07-19 15:24 | disposition home or self-care (01) ==
LOC: HO.HKASLDS 15:23
PROVIDERS: PCP Pediatrics; Visit Provider Student in an Organized Health Care Education/Training Program
DX: Z79.899 Other long term (current) drug therapy (principal)
CPT/HCPCS: 36415; 80053